=== PATIENT | female | born 1950 | race Caucasian/White ===

== ENCOUNTER 2017-05-08 17:05 | Emergency (ER) | payer MEDICARE, OTHER ==
[2017-05-08] MEDS: ALPRAZOLAM 0.25 MG TAB PO (21:45)
== END 2017-05-08 22:44 | disposition home or self-care (01) ==
LOC: E/R 17:05
DX: F41.9 Anxiety disorder, unspecified (principal); I10 Essential (primary) hypertension
CPT/HCPCS: 93005; 99283-25